=== PATIENT | female | born 1960 | race Asian ===

== ENCOUNTER 2020-08-20 17:18 | Emergency (ER) | payer MEDICAID, OTHER ==
[~2020-08-20] VITALS: Ht 152.4 cm; Wt 67.7 kg
--- NOTE | 2020-08-20 17:38 | NUR ---
THIS IS A 59 YEAR OLD FEMALE WHO C/O LEFT SIDE TAYLOR X 3 DAYS, LEFT JAW PAIN, AND TAYLOR X 3 DAYS, PT SEEN AT AND WAS SENT TO ED. PT PLACED ON ANCHORER IN SINUS, CONTINOUS SP02 AND CYCLE VS. DR. GREGORY AT BS
--- NOTE | 2020-08-20 18:03 | NUR ---
PT/DAUGHTER REQUESTING TO HOLD DIAGNOSTICS UNTIL INSURANCE IS VERIFIED.
--- NOTE | 2020-08-20 18:25 | NUR ---
Break RN note: Pt's daughter continues to request to wait for treatment until it is verified that insurance will cover all treatments. Registrars actively working to resolve this issue [place].
--- NOTE | 2020-08-20 18:48 | NUR ---
DAUGHTER CAME TO THE NURSING STATION AND STATES, "I JUST WANTED THIS TAKEN CARE OF"
--- NOTE | 2020-08-20 19:12 | NUR ---
PT/FAMILY NOW CONSENTING TO WORK UP. IV PLACED. LABS DRAWN AND SENT TO LAB. PT/FAMILY UPDATED TO POC (LABS/CT/RESULTS/DISPO) AND DEMONSTRATES UNDERSTANDING. PT GROSS NEURO INTACT AND REPORTS "FEELING BETTER"; DENIES NEED FOR PAIN OR NAUSEA MEDICATIONS.
[2020-08-20] MEDS ORDERED: ROSU10TA2 PO (19:16)
[2020-08-20 19:18] LABS: BASOPHILS % (AUTO) 1 % (0-1); EOSINOPHILS % (AUTO) 3 % (1-7); LYMPHOCYTES % (AUTO) 32 % (22-44); MEAN CORPUSCULAR HEMOGLOBIN 29.4 pg (27.0-34.8); MEAN CORPUSCULAR HGB CONC 33.7 g/dL (32.4-35.8); MEAN PLATELET VOLUME 9.4 fL (7.4-10.4); MONOCYTES % (AUTO) 9 % (2-9); NEUTROPHILS % (AUTO) 56 % (42-75); PLATELET COUNT 283 x10^3/uL (130-400); RED BLOOD COUNT 4.92 x10^6/uL (3.82-5.3); RED CELL DISTRIBUTION WIDTH 13.7 % (9.6-15.2)
[2020-08-20 19:31] LABS: ALANINE AMINOTRANSFERASE 22 U/L (12-78); ALBUMIN 4.1 g/dL (3.4-5.0); ANION GAP 7 mmol/L (5-15); CALCIUM 9.1 mg/dL (8.5-10.1); CHLORIDE 110 mmol/L (98-107); CREATININE 0.71 mg/dL (0.55-1.02)
[2020-08-20 19:35] LABS: ALKALINE PHOSPHATASE 99 U/L (45-117); BILIRUBIN,TOTAL 0.3 mg/dL (0.2-1.0); TOTAL PROTEIN 8.6 g/dL (6.4-8.2); TROPONIN I < 0.015 ng/mL (0.000-0.045)
--- NOTE | 2020-08-20 20:09 | NUR ---
PT IN CT
[2020-08-20] MEDS ORDERED: OMNIPAQUE 350 MG/ML, 100ML BOTTLE ONE (20:15)
[2020-08-20] MEDS ORDERED: ONDANSETRON 2MG/ML, 2ML ONE (21:11)
[2020-08-20] MEDS ORDERED: KETOROLAC 30 MG/1 ML ONE (21:11)
[2020-08-20] MEDS ORDERED: DIPHENHYDRAMINE 50 MG/ML, 1ML ONE (21:11)
--- NOTE | 2020-08-20 21:19 | NUR ---
TASK RN: PT C/O PAIN TO HEAD AND MIGRAINE, AND MD AWARE AND MED ORDERS RECEIVED. PT MEDICATED PER MD ORDER, SEE EMAR. PT TOLERATED WELL, NO C/O PAIN WITH MED ADMINISTRATION. PTS DAUGHTER AT BEDSIDE VERY RUDE AND DEMANDING TO KNOW IF THE CT WAS READ YET. SHE WAS INFORMED THAT NO, IT HASN'T AND SOON THE RADIOLOGIST READS THE CT, THEY WILL BE IN TOUCH WITH THE E.R. PHYSICIAN AND COME TALK TO THEM. PIV FLUSHED EASILY, AND NO REDNESS, SWELLING OR PAIN NOTED.
--- NOTE | 2020-08-20 21:29 | NUR ---
[employer] CALLED REGARDING UNREAD IMAGING. STATES THAT THEY WERE LATE BEING SENT TO STAT RAD AND WERE SENT APPROX 15 MIN AGO. ERP AND PT/FAMILY MADE AWARE OF DELAY.
[2020-08-20] MEDS ORDERED: KETOROLAC 30 MG/1 ML IVPush ONE (21:30)
[2020-08-20] MEDS ORDERED: DIPHENHYDRAMINE 50 MG/ML, 1ML IVPush ONE (21:30)
[2020-08-20] MEDS ORDERED: ONDANSETRON 2MG/ML, 2ML IVPush ONE (21:30)
--- NOTE | 2020-08-20 21:56 | NUR ---
EDUCATIONAL ADMINISTRATOR INFORMED MT THAT STAT RAD IS READING CT'S AT THIS TIME.
[2020-08-20 22:26] VITALS: BP 150/85
--- NOTE | 2020-08-20 22:26 | NUR ---
PT REPORTS IMPROVED HEADACHE W RX. POC IS DC. IV DC'D. PT OFF MONITORING. DC EDUCATION PROVIDED, PT/FAMILY DEMONSTRATE UNDERSTANDING. REFUSED WHEELCHAIR. PT AMBULATED STEADILY TO DC WITH RN AND FAMILY.
== END 2020-08-20 22:35 | disposition home or self-care (01) ==
LOC: ED 17:55
DX: I10 Essential (primary) hypertension (principal); R51.9 Headache, unspecified; R94.31 Abnormal electrocardiogram [ECG] [EKG]
CPT/HCPCS: 36415; 70450; 70496; 70498; 80053; 84484; 85025; 93005; 96374; 96375; 99285; J1200; J1885; J2405; Q9967